=== PATIENT | female | born 1970 ===

== ENCOUNTER 2022-05-23 06:03 | Day surgery (SDC) | payer OTHER ==
[~2022-05-23] VITALS: Ht 162.6 cm; Wt 95.3 kg
[~2022-05-23 06:03] MED LIST: AMLODIP PO; ATACAND32 MG PO; CRESTOR20 MG PO
[2022-05-23] MEDS ORDERED: IBU600 MG PO (15:25)
== END 2022-05-23 18:30 | disposition home or self-care (01) ==
LOC: CIR.AMB 06:03
PROVIDERS: ATTEND Obstetrics & Gynecology Gynecology
DX: N95.0 Postmenopausal bleeding (principal); D25.0 Submucous leiomyoma of uterus; Z20.822 Contact with and (suspected) exposure to COVID-19; Z88.0 Allergy status to penicillin; Z88.6 Allergy status to analgesic agent; I10 Essential (primary) hypertension; E16.2 Hypoglycemia, unspecified; E66.09 Other obesity due to excess calories